=== PATIENT | female | born 1965 | race Two or more races ===

== ENCOUNTER 2022-10-27 03:57 | Day surgery (SDC) | payer OTHER ==
[2022-10-22 13:42] VITALS: BMI 26.5
[2022-10-27 07:14] LABS: INR 1.13 (0.83-1.09)
[2022-10-27] MEDS ORDERED: LIDOCAINE HCL/PF 1% SDV 5ML VIAL ONE ×3 (08:45→09:43)
[2022-10-27] MEDS ORDERED: BUPIVACAINE HCL/PF 0.5% (5MG/ML) 10 ML VIAL ONE (08:45)
[2022-10-27] MEDS ORDERED: MIDAZOLAM HCL 2 MG/2 ML SINGLE DOSE VIAL ONE ×2 (09:21→09:47)
[2022-10-27] MEDS ORDERED: BUPIVACAINE HCL/PF 0.5% (5MG/ML) 10 ML VIAL IJ ONE (09:30)
[2022-10-27] MEDS ORDERED: ceFAZolin SODIUM 1 GM VIAL IVPB ONE (09:30)
[2022-10-27] MEDS ORDERED: LIDOCAINE 1% P/F 10 MG/ML VIAL INF ONE (09:30)
[2022-10-27] MEDS ORDERED: LIDOCAINE HCL 1% PRESERVATIVE FREE - 30ML VIAL IJ ONE (09:45)
[2022-10-27] MEDS ORDERED: PROPOFOL 20 ML ONE ×2 (10:55)
[2022-10-27] MEDS ORDERED: SUCCINYLCHOLINE CHLORIDE 200 MG/10 ML SYRINGE ONE (10:56)
[2022-10-27] MEDS ORDERED: BUPIVACAINE HCL/PF 0.5% (5MG/ML) 10 ML VIAL NR ONE (12:18)
[2022-10-27] MEDS ORDERED: oxyCODONE HCL 5 MG TABLET PO ONE (14:10)
[2022-10-27] MEDS ORDERED: oxyCODONE HCL 5 MG TABLET ONE (14:13)
[2022-10-27 14:27] VITALS: TEMP 97.5
[2022-10-27 15:28] VITALS: BP 109/67; PULSE 86; RESP 20
== END 2022-10-27 15:36 | disposition home or self-care (01) ==
LOC: JASU-SURG 03:57
PROVIDERS: ATTEND Podiatrist Foot & Ankle Surgery
PROC: 0SGN04Z Fusion of Left Metatarsal-Phalangeal Joint with Internal Fixation Device, Open Approach (ICD-10-PCS; 2022-10-27)
PROC: 0QBP0ZZ Excision of Left Metatarsal, Open Approach (ICD-10-PCS; 2022-10-27)
PROC: 0QPP04Z Removal of Internal Fixation Device from Left Metatarsal, Open Approach (ICD-10-PCS; 2022-10-27)
PROC: 0QSP04Z Reposition Left Metatarsal with Internal Fixation Device, Open Approach (ICD-10-PCS; principal; 2022-10-27 08:30)
DX: M20.12 Hallux valgus (acquired), left foot (principal); M77.42 Metatarsalgia, left foot; T84.89XA Other specified complication of internal orthopedic prosthetic devices, implants and grafts, initial encounter; S92.315A Nondisplaced fracture of first metatarsal bone, left foot, initial encounter for closed fracture; Y79.8 Miscellaneous orthopedic devices associated with adverse incidents, not elsewhere classified; Y92.9 Unspecified place or not applicable; M79.672 Pain in left foot
CPT/HCPCS: 20680; 28308; 28322; 28750; C1713; 36415; 73630-TC-LT; 76000-TC-FY; 85610; 88300-TC; 94760; 97116-GP